=== PATIENT | male | born 2005 | race Two or more races ===

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

== ENCOUNTER 2024-01-31 08:37 | Emergency (ER) | payer OTHER ==
[2024-01-31 08:45] VITALS: RESP 20; BMI 32.8
[2024-01-31 10:23] VITALS: BP 124/69; PULSE 82; TEMP 98.6
[2024-01-31] MEDS ORDERED: diphenhydrAMINE HCL 25 MG CAPSULE (FP) PO ONE (10:39)
[2024-01-31] MEDS: diphenhydrAMINE HCL 25 MG CAPSULE (FP) PO ONE (10:41)
== END 2024-01-31 11:03 | disposition home or self-care (01) ==
LOC: JERFT 08:37
DX: L29.9 Pruritus, unspecified (principal); R20.2 Paresthesia of skin; Y99.0 Civilian activity done for income or pay
CPT/HCPCS: 82962; 99283-25

== ENCOUNTER 2024-07-22 08:11 | Emergency (ER) | payer OTHER ==
[2024-07-22 08:19] VITALS: RESP 20; BMI 33.0
[2024-07-22] MEDS ORDERED: BACITRACIN ZINC 15 GM TUBE TOPICAL OINTMENT ONE (09:12)
[2024-07-22] MEDS: BACITRACIN ZINC 15 GM TUBE TOPICAL OINTMENT TP ONE (09:14)
[2024-07-22 09:23] LABS: HEMATOCRIT 45.4 % (35.4-49); HEMOGLOBIN 15.5 GM/dL (11.7-16.9); MCH 29.7 pg (25.7-33.7); MCHC 34.1 g/dl (32.0-35.9); MEAN CELL VOLUME 86.8 fl (80-96); MEAN PLT VOLUME 7.7 fl (7.5-11.1); PLATELET COUNT 258 10^3/uL (134-434); RBC 5.23 M/mm3 (4.00-5.60); WHITE BLOOD COUNT 11.8 K/mm3 (4.0-10.0)
[2024-07-22 09:48] LABS: POTASSIUM 4.4 mmol/L (3.5-5.1)
[2024-07-22 09:50] LABS: ALBUMIN 3.9 g/dl (3.4-5.0)
[2024-07-22 09:52] LABS: BLOOD UREA NITROGEN 10.7 mg/dL (7-18); CALCIUM 9.2 mg/dL (8.5-10.1); MAGNESIUM 2.1 mg/dL (1.8-2.4)
[2024-07-22 09:55] LABS: BILIRUBIN,TOTAL 0.6 mg/dL (0.2-1); CREATININE 0.7 mg/dL (0.55-1.3); TOT PROT 7.3 g/dl (6.4-8.2)
[2024-07-22 10:10] LABS: ANISOCYTOSIS 2+; MACROCYTOSIS 0
[2024-07-22] MEDS ORDERED: ACETAMINOPHEN INJECTION 100 ML ONE (10:14)
[2024-07-22] MEDS ORDERED: FAMOTIDINE 20 MG/50 ML IVPB 20 MG/50 ML MG IVPB ONE (10:15)
[2024-07-22] MEDS: ACETAMINOPHEN 1000 MG/100 ML BAG IVPB ONE (10:19)
[2024-07-22] MEDS: FAMOTIDINE 20 MG/50 ML IVPB 20 MG/50 ML MG IVPB ONE (10:20)
[2024-07-22] MEDS: DICYCLOMINE HCL 20 MG/2 ML AMPUL IM ONE (10:21)
[2024-07-22] MEDS: DICYCLOMINE HCL 10 MG/5 ML PO ONE (10:24)
[2024-07-22] MEDS ORDERED: DICYCLOMINE HCL 10 MG CAPSULE ONE (10:31)
[2024-07-22] MEDS: LACTATED RINGERS SOLUTION 1000 ML INFUS.BAG IV ONE (10:37)
[2024-07-22] MEDS: DICYCLOMINE HCL 10 MG CAPSULE PO ONE (10:38)
[2024-07-22 11:43] LABS: HIV INTERPRETATION NEGATIVE (NEGATIVE)
[2024-07-22 12:31] VITALS: BP 125/65; PULSE 65; TEMP 98.1
== END 2024-07-22 11:31 | disposition home or self-care (01) ==
LOC: JER 08:11
PROC: 3E033GC Introduction of Other Therapeutic Substance into Peripheral Vein, Percutaneous Approach (ICD-10-PCS; principal; 2024-07-22)
PROC: 3E033NZ Introduction of Analgesics, Hypnotics, Sedatives into Peripheral Vein, Percutaneous Approach (ICD-10-PCS; 2024-07-22)
DX: S30.810A Abrasion of lower back and pelvis, initial encounter (principal); R50.9 Fever, unspecified; R19.7 Diarrhea, unspecified; R10.32 Left lower quadrant pain; Z20.822 Contact with and (suspected) exposure to COVID-19
CPT/HCPCS: 0241U-QW; 36415; 80053; 83735; 85025; 86803; 87389; 99284-25; J0131